=== PATIENT | female | born 1955 | race Hispanic/Latino ===

== ENCOUNTER → 2023-10-21 | Outpatient (CLI) | payer OTHER | END | disposition home or self-care (01) | LOC: OIH 14:30 | PROVIDERS: ATTEND Internal Medicine | DX: M47.22 Other spondylosis with radiculopathy, cervical region (principal) | CPT/HCPCS: 72040 ==

== ENCOUNTER → 2024-07-30 | Outpatient (CLI) | payer MEDICARE ==
--- NOTE | 2024-07-30 13:50 | HMCIMG ---
CHEST 2VWS REASON: COPD COMPARISON: None. FINDINGS: Two views of the chest were obtained. Lungs are clear. Heart size is normal. There is no pulmonary vascular congestion. Mediastinum and bony thorax appear unremarkable. IMPRESSION: Normal two view chest x-ray.
== END | disposition home or self-care (01) ==
LOC: RAH 12:53
PROVIDERS: ATTEND Internal Medicine
DX: J44.9 Chronic obstructive pulmonary disease, unspecified (principal)
CPT/HCPCS: 71046

== ENCOUNTER → 2025-03-31 | Outpatient (CLI) | payer MEDICARE ==
--- NOTE | 2025-04-01 04:28 | HMCIMG ---
EXAM: CT Abdomen and Pelvis without IV contrast. CLINICAL HISTORY: Kidney calculus. TECHNIQUE: Thin collimated axial CT images of the abdomen and pelvis were obtained with sagittal and coronal reformatted images also submitted. CT scan done according to ALARA (As Low As Reasonably Achievable). CONTRAST: None. COMPARISON: None. FINDINGS: Unremarkable visualized lung parenchyma. There is no focal abnormality appreciated within the liver, gallbladder, pancreas, spleen, adrenals, or kidneys. There is no obvious bowel wall thickening. Bowel loops are normal in caliber without evidence of obstruction or ileus. The appendix is normal. No renal, ureteric or bladder calculi. There is no abnormality within the urinary bladder. Post hysterectomy status. No adnexal mass. Abdominal and pelvic vessels are patent. No lymphadenopathy. No free fluid. Multiple tiny phleboliths in the pelvis. There is no acute osseous abnormality. IMPRESSIONS: 1. No acute process in the abdomen and pelvis. No renal, ureteric or bladder calculi. 2. Post hysterectomy status. /[place]
== END | disposition home or self-care (01) ==
LOC: RAH 09:01
PROVIDERS: ATTEND Internal Medicine
DX: N20.0 Calculus of kidney (principal); I87.8 Other specified disorders of veins
CPT/HCPCS: 74176

== ENCOUNTER → 2025-07-06 | Outpatient (CLI) | payer MEDICARE ==
--- NOTE | 2025-07-07 06:52 | HMCIMG ---
EXAM: CR left Rib, 4 View. CLINICAL HISTORY: SLIPPED RIB SYNDROME COMPARISON: None provided. FINDINGS: LUNGS: The visualized lungs appear essentially clear. PLEURAL SPACES: No evidence of pneumothorax. No pleural effusion. BONES: No visible acute rib fracture. IMPRESSION: No visible acute rib fracture. No pneumothorax. /[place]
--- NOTE | 2025-07-07 06:52 | HMCIMG ---
EXAM: CR Thoracic Spine, 2 View. CLINICAL HISTORY: THORACIC BACK PAIN COMPARISON: None provided. FINDINGS: BONES: No acute fracture or aggressive appearing osseous lesion. DISCS / DEGENERATIVE CHANGES: The disc spaces are preserved. SOFT TISSUES: The paraspinal soft tissue lines are unremarkable. The visualized lungs are clear. MISCELLANEOUS: Visualization of the upper thoracic spine is limited on the lateral view by overlying structures. IMPRESSION: No acute thoracic spine osseous abnormality. /[place]
== END | disposition home or self-care (01) ==
LOC: RAH 14:42
PROVIDERS: ATTEND Internal Medicine
DX: M94.0 Chondrocostal junction syndrome [Tietze] (principal); M89.8X8 Other specified disorders of bone, other site; K86.9 Disease of pancreas, unspecified; M54.6 Pain in thoracic spine
CPT/HCPCS: 71100; 72070